=== PATIENT | male | born 1935 | race Caucasian/White ===

== ENCOUNTER → 2016-09-26 | Outpatient (CLI) | payer MEDICARE ==
[~2016-09-26] MED LIST: /ALLEGDTA; ASPI81TA60 PO; ATEN25TA PO; ATEN50TA2; COLA100C5 PO; COZA1TAB PO; DIOV160T5; LOSA25TA8 PO; PERC5TAB12 PO; PROT1TAB2 PO; SIMV80TA PO; TYLE325T5 PO; ZOCO80TA PO
[2016-09-26 13:36] LABS: BASO # 0.1 K/mm3 (0.0-0.2); BASO % 0.8 % (0.0-1.0); EOS # 0.4 K/mm3 (0.0-0.50); EOS % 3.9 % (0.0-3.0); LARGE UNSTAINED CELL # 0.2 K/mm3 (0.0-0.4); LARGE UNSTAINED CELL % 1.9 % (0.0-4.0); LYMPH # 4.4 K/mm3 (1.5-4.5); LYMPH % 45.2 % (24.0-44.0); MEAN CORPUSCULAR HEMOGLOBIN 28.7 pg (27.0-33.0); MEAN CORPUSCULAR HGB CONC 33.1 g/dl (32.0-36.5); MEAN CORPUSCULAR VOLUME 86.7 fl (80.0-96.0); MONO # 0.4 K/mm3 (0.0-0.8); MONO % 4.5 % (0.0-5.0); NEUTROPHILS # 4.1 K/mm3 (1.8-7.7); NEUTROPHILS % 43.7 % (36.0-66.0); PLATELET COUNT, AUTOMATED 195 k/mm3 (150-450); RED CELL DISTRIBUTION WIDTH 13.7 % (11.5-14.5); WHITE BLOOD COUNT 9.4 K/mm3 (4.0-10.0)
--- NOTE | 2016-09-26 13:52 | REP ---
CHEST X-RAY: Two views. HISTORY: Essential hypertension. COMPARISON STUDY: May 12, 2015. FINDINGS: The lungs are symmetrically aerated and free of infiltrate. The pleural angles are sharp. Heart is not enlarged. The aorta is somewhat tortuous. There are degenerative changes in the thoracic spine. 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 No other bony abnormality is seen. IMPRESSION: No active disease. Signed by Lito Plascencia MD 09/26/2016 02:46 P
[2016-09-26 14:03] LABS: ALBUMIN 3.6 GM/DL (3.2-5.2); CALCIUM LEVEL 8.9 MG/DL (8.8-10.2); CREATININE FOR GFR 1.34 MG/DL (0.70-1.30); GLOMERULAR FILTRATION RATE 54.2 (>35); PHOSPHORUS LEVEL 2.5 MG/DL (2.5-4.9); POTASSIUM SERUM 4.5 MEQ/L (3.5-5.1)
== END ==
LOC: M LAB 12:55
PROVIDERS: ATTEND Internal Medicine Cardiovascular Disease
DX: I10 Essential (primary) hypertension (principal)

== ENCOUNTER → 2016-11-14 | Outpatient (CLI) | payer MEDICARE ==
--- NOTE | 2016-11-14 17:45 | REP ---
MRI THORACIC SPINE WITHOUT CONTRAST: HISTORY: Mid back pain. COMPARISON: 10/30/2006 A disc bulge is present at the T1-2 level. There is minimal effacement of the thecal sac without spinal cord compression. The T1 neural foramina are patent. A disc bulge is present at the T2-3 level. There is minimal effacement of the thecal sac without spinal cord compression. The T2 neural foramina are patent. A small left paracentral disc protrusion is present at the T7-8 level. There is minimal effacement of the thecal sac without spinal cord compression. The T7 neural foramina are patent. A disc bulge is present at the T8-9 level. There is minimal effacement of the thecal sac without spinal cord compression. The T8 neural foramina are patent. A disc bulge and small central disc protrusion are present at the T9-10 level. There is minimal effacement of the thecal sac without spinal cord compression. The T9 neural foramina are patent. There is no other disc bulge or herniation. The remaining neural foramina are patent. The spinal cord is normal in signal intensity. There is loss of height of several lower thoracic intervertebral discs consistent with disc degeneration. Increased signal intensity on T2-weighted images is present in the endplates of several mid and lower thoracic vertebral bodies. This represents degenerative change. IMPRESSION: 1. Disc bulges at the T1-2, T2-3 and T8-9 levels without spinal cord compression. 2. Small disc protrusion at the T7-8 level without spinal cord compression. 3. Disc bulge and small disc protrusion at the T9-10 level without spinal cord compression. There is no significant change compared to the previous study. Signed by Gabriele Carrillo MD 11/18/2016 08:11 A
== END ==
LOC: M PLARAD 09:45
PROVIDERS: ATTEND Physical Medicine & Rehabilitation
DX: M54.6 Pain in thoracic spine (principal)

== ENCOUNTER 2017-07-29 08:04 | Outpatient (RCR) | payer MEDICARE | END 2017-08-13 | LOC: M CR 08:04 | DX: Z98.61 Coronary angioplasty status (principal) | CPT/HCPCS: 93798 ==

== ENCOUNTER 2017-08-17 09:41 | Outpatient (RCR) | payer MEDICARE | END 2017-09-12 | LOC: M CR 09:41 | DX: Z51.89 Encounter for other specified aftercare (principal); Z98.61 Coronary angioplasty status | CPT/HCPCS: 93798 ==

== ENCOUNTER 2017-09-21 09:13 | Outpatient (RCR) | payer MEDICARE | END 2017-10-13 | LOC: M CR 09:13 | DX: Z98.61 Coronary angioplasty status (principal) | CPT/HCPCS: 93798 ==

== ENCOUNTER 2017-09-28 12:36 | Emergency (ER) | payer MEDICARE ==
[2017-09-28] MEDS: ACETAMINOPHEN 325 MG TAB PO (15:23)
[2017-09-28 15:39] LABS: BASO # 0.1 10^3/uL (0.0-0.2); BASO % 0.5 % (0.0-1.0); EOS # 0.2 10^3/uL (0.0-0.50); EOS % 1.5 % (0.0-3.0); HEMATOCRIT 47.9 % (42.0-52.0); HEMOGLOBIN 15.5 g/dl (13.5-17.5); IMMATURE GRANULOCYTE % 0.8 % (0-3.0); LYMPH % 31.2 % (24.0-44.0); MEAN CORPUSCULAR HEMOGLOBIN 28.4 pg (27.0-33.0); MEAN CORPUSCULAR HGB CONC 32.4 g/dl (32.0-36.5); MEAN CORPUSCULAR VOLUME 87.9 fl (80.0-96.0); MONO # 1.4 10^3/uL (0.0-0.8); MONO % 10.8 % (0.0-5.0); NEUTROPHILS % 55.2 % (36.0-66.0); PLATELET COUNT, AUTOMATED 210 10^3/uL (150-450); RED BLOOD COUNT 5.45 10^6/uL (4.30-6.10); RED CELL DISTRIBUTION WIDTH 14.1 % (11.5-14.5); WHITE BLOOD COUNT 12.7 10^3/uL (4.0-10.0)
[2017-09-28 15:50] LABS: ANION GAP 8 MEQ/L (8-16); BLOOD UREA NITROGEN 26 MG/DL (7-18); CALCIUM LEVEL 8.8 MG/DL (8.8-10.2); CARBON DIOXIDE LEVEL 27 MEQ/L (21-32); CHLORIDE LEVEL 106 MEQ/L (98-107); CREATININE FOR GFR 1.42 MG/DL (0.70-1.30); GLOMERULAR FILTRATION RATE 50.6 (>35); GLUCOSE, FASTING 103 MG/DL (70-100); POTASSIUM SERUM 4.8 MEQ/L (3.5-5.1); SODIUM LEVEL 141 MEQ/L (136-145); URIC ACID 8.9 MG/DL (3.5-7.2)
[2017-10-01 00:20] LABS: Lyme Disease IgG Ab 18 kDa Ban Absent (.); Lyme Disease IgG Ab 23 kDa Ban Present (.); Lyme Disease IgG Ab 28 kDa Ban Absent (.); Lyme Disease IgG Ab 30 kDa Ban Absent (.); Lyme Disease IgG Ab 39 kDa Ban Absent (.); Lyme Disease IgG Ab 41 kDa Ban Absent (.); Lyme Disease IgG Ab 45 kDa Ban Absent (.); Lyme Disease IgG Ab 58 kDa Ban Absent (.); Lyme Disease IgG Ab 66 kDa Ban Absent (.); Lyme Disease IgG Ab 93 kDa Ban Absent (.); Lyme Disease IgG West Blot Int Negative (.); Lyme Disease IgG/IgM Antibodie 0.95 ISR (0.00-0.90); Lyme Disease IgM Ab 23 kDa Ban Absent (.); Lyme Disease IgM Ab 39 kDa Ban Absent (.); Lyme Disease IgM Ab 41 kDa Ban Present (.); Lyme Disease IgM Ab Quantitati <0.80 index (0.00-0.79); Lyme Disease IgM West Blot Int Negative (.)
== END 2017-09-28 16:49 | disposition home or self-care (01) ==
LOC: M ED 12:36
DX: M10.071 Idiopathic gout, right ankle and foot (principal); I10 Essential (primary) hypertension; Z96.0 Presence of urogenital implants; M77.31 Calcaneal spur, right foot; M79.89 Other specified soft tissue disorders; Z79.82 Long term (current) use of aspirin; Z79.899 Other long term (current) drug therapy
CPT/HCPCS: 73610

== ENCOUNTER → 2017-11-09 | Outpatient (REF) | payer MEDICARE ==
[2017-11-09 14:24] LABS: URIC ACID 8.8 MG/DL (3.5-7.2)
== END ==
LOC: M LAB REF 13:26
DX: M10.071 Idiopathic gout, right ankle and foot (principal)
CPT/HCPCS: 84550

== ENCOUNTER → 2017-12-14 | Outpatient (REF) | payer MEDICARE ==
[2017-12-14 19:29] LABS: URIC ACID 8.3 MG/DL (3.5-7.2)
== END ==
LOC: M LAB REF 18:40
DX: M10.071 Idiopathic gout, right ankle and foot (principal)
CPT/HCPCS: 84550

== ENCOUNTER → 2018-06-01 | Outpatient (REF) | payer MEDICARE ==
[~2018-06-01] MED LIST changes: +ANOR1AER; +ATEN50TA2 PO; +BRIL90TA PO; +LOSA25TA14 PO; -LOSA25TA8 PO; +LOSA50TA88; +NORCOTAB PO; +PROAAER10; -SIMV80TA PO; +SIMV80TA13 PO
== END ==
LOC: M LAB REF 17:46
PROVIDERS: ATTEND Internal Medicine
DX: M10.071 Idiopathic gout, right ankle and foot (principal)

== ENCOUNTER → 2018-07-12 | Outpatient (CLI) | payer MEDICARE ==
[~2018-07-12] MED LIST changes: +HYDR-3715 PO; -NORCOTAB PO
== END ==
LOC: M RAD 09:30
PROVIDERS: ATTEND Physical Medicine & Rehabilitation
DX: M51.36 Other intervertebral disc degeneration, lumbar region (principal)

== ENCOUNTER → 2018-12-07 | Outpatient (REF) | payer MEDICARE | LOC: M LAB REF 12:48 | PROVIDERS: ATTEND Internal Medicine | DX: M10.071 Idiopathic gout, right ankle and foot (principal) ==

== ENCOUNTER 2019-05-19 23:14 | Inpatient (IN) | payer MEDICARE ==
[~2019-05-19] VITALS: Ht 172.7 cm; Wt 95.2 kg
[2019-05-20] MEDS ORDERED: NORCO, ANEXSIA 5/325MG TABLET (HYDROcodone/ACETAMINOPHEN) PO ONE (02:00)
[2019-05-20 02:23] LABS: BASO # 0.1 10^3/uL (0.0-0.2); BASO % 0.8 % (0.0-1.0); EOS # 0.3 10^3/uL (0.0-0.5); EOS % 2.7 % (0.0-3.0); HEMATOCRIT 48.9 % (42.0-52.0); HEMOGLOBIN 15.7 g/dl (13.5-17.5); LYMPH # 3.5 10^3/uL (1.5-5.0); LYMPH % 29.2 % (24.0-44.0); MEAN CORPUSCULAR HEMOGLOBIN 26.9 pg (27.0-33.0); MEAN CORPUSCULAR HGB CONC 32.1 g/dl (32.0-36.5); MEAN CORPUSCULAR VOLUME 83.9 fl (80.0-96.0); MONO # 0.9 10^3/uL (0.0-0.8); MONO % 7.5 % (0.0-5.0); NEUTROPHILS # 7.1 10^3/uL (1.5-8.5); NEUTROPHILS % 58.8 % (36.0-66.0); PLATELET COUNT, AUTOMATED 196 10^3/uL (150-450); RED BLOOD COUNT 5.83 10^6/uL (4.30-6.10)
[2019-05-20 02:46] LABS: BLOOD UREA NITROGEN 24 MG/DL (7-18); CALCIUM LEVEL 8.4 MG/DL (8.8-10.2); CARBON DIOXIDE LEVEL 28 MEQ/L (21-32); CHLORIDE LEVEL 107 MEQ/L (98-107); CK-MB VALUE MASS 3.2 NG/ML (<3.6); CPK CREATINE PHOSPHOKINASE 315 U/L (39-308); CREATININE FOR GFR 1.46 MG/DL (0.70-1.30); GLOMERULAR FILTRATION RATE 48.9 (>35); GLUCOSE, FASTING 118 MG/DL (70-100); MB/CK RELATIVE INDEX 1.02 (< OR =4); NT-PRO BNP 460 PG/ML (<450); SODIUM LEVEL 140 MEQ/L (136-145); TROPONIN I < 0.02 NG/ML (< 0.10)
[2019-05-20] MEDS ORDERED: ISOVUE-370 76% 100ML VIAL (Q9967) As Ordered ONE (03:06)
--- NOTE | 2019-05-20 03:48 | REPVR ---
PROCEDURE INFORMATION: Exam: CT Angiography Chest With Contrast Exam date and time: 05/20/2019 1:54 AM Age: 83 years old Clinical indication: Right-sided chest pain; Additional info: Right sided pleuritic chest pain, persistant cough TECHNIQUE: Imaging protocol: Computed tomographic angiography of the chest with intravenous contrast. 3D rendering: MIP and/or 3D reconstructed images were created by the technologist. Radiation optimization: All CT scans at this facility use at least one of these dose optimization techniques: automated exposure control; mA and/or kV adjustment per patient size (includes targeted exams where dose is matched to clinical indication); or iterative reconstruction. Contrast material: ISO; Contrast volume: 75 ml; Contrast route: AC; COMPARISON: CR Chest, 2 view PA, Lat 09/26/2016 1:11 PM FINDINGS: Pulmonary arteries: The main pulmonary artery measures 29 mm. No central pulmonary embolism is identified. Aorta: The ascending thoracic aorta measures 38 mm. Lungs: Minimal bibasilar fibro-atelectatic change and question of minimal patchy ground-glass infiltrates in the posterior lungs. Pleural space: Unremarkable. No pneumothorax. No pleural effusion. Heart: Unremarkable. No cardiomegaly. No pericardial effusion. Lymph nodes: Unremarkable. No enlarged lymph nodes. Bones/joints: There is some segmental ankylosis in the lower thoracic spine. Disruption of anterior right costochondral cartilage medial to the right anterior 6th and 7th ribs. This is on series 403, image # 29 and 25. Soft tissues: Unremarkable. IMPRESSION: 1. Fracture or disruption of right anterior costochondral cartilage medial to the anterior right 6th and 7th ribs. 2. Minimal bibasilar fibro-atelectatic change with minimal patchy infiltrates posteriorly in the upper lobes and lower lobes. 3. No central pulmonary embolism is identified. Electronically signed by: Yosi Cisneros On 05/20/2019 03:47:46 AM
[2019-05-20] MEDS ORDERED: ONDANSETRON 4MG/2ML VIAL (J2405) IV ONE (04:15)
[2019-05-20] MEDS ORDERED: MORPHINE 4 MG/ML 1ML VIAL/SYRINGE (J2270) As Ordered ONE (04:17)
[2019-05-20] MEDS: MORPHINE 4 MG/ML 1ML VIAL/SYRINGE (J2270) IV PRN ×2 (04:24→05:05)
[2019-05-20] MEDS ORDERED: SODIUM CHLORIDE 0.9% 1000ML IV STA (04:42)
[2019-05-20] MEDS ORDERED: methylPREDNISolone INJ 125 MG/2 ML VIAL (J2930) IV STA (04:42)
--- NOTE | 2019-05-20 04:42 | HPEPDOC ---
[facility] Medical History & Physical Date of Admission May 20, 2019 Date of Service: May 20, 2019 Primary Care Physician: Jr Lewis Collins Attending Physician: YESSENIA VAN MD History and Physical TIME OF SERVICE: 4:55 AM CHIEF COMPLAINT: Cough HISTORY OF PRESENT ILLNESS: This is an 83-year-old male who presents with complaints of cough productive of green sputum for about 1 month. He saw his PCP who gave him 2 rounds of CPAP, prednisone, Mucinex, and Robitussin but he continues to cough. Associated symptoms include runny nose and right-sided chest pain that is made worse with coughing. He denies having fevers or chills; he has not traveled and denies having sick contacts. Per his respiratory panel was negative but CT showed 2 right rib fractures. REVIEW OF SYSTEMS: 12 point review of systems negative except as listed in HPI PAST MEDICAL/ SURGICAL HISTORY: COPD Chronic HTN CAD status post stents / Dyslipidemia Cholecystectomy Right rotator cuff surgery SOCIAL HISTORY: Former smoker FAMILY HISTORY: Cancer CAD COPD ALLERGIES: Please see below. HOME MEDICATIONS: Please see below. Vital Signs Date Time Temp Pulse Resp B/P (MAP) Pulse Ox O2 Delivery O2 Flow Rate FiO2 05/19/19 23:14 95.9 69 18 192/99 (130) 96 Room Air 05/20/19 06:00 2.0 05/20/19 06:00 28 PHYSICAL EXAMINATION: GEN: well nourished / well developed/ NAD INTEGUMENT: Doesn't have facial plethora HEENT:NCAT / lips are not cyanotic / NC in place CVS: RRR/ radial pulses are intact LUNGS: he is able to speak full sentences without stopping to take a breath / coughing /he is not using accessory muscles /lungs are clear to auscultation bilaterally ABDOMEN: soft & not tender with palpation NEURO: CN 2-12 are grossly intact / speech is not dysarthric PSYCH: alert and oriented to person place and time/ able to understand and follow all commands LABORATORY DATA: Anion Gap 5L, Glomerular Filtration Rate 48.9, Calcium Level 8.4L, Total Creatine Kinase 315H, Creatine Kinase MB 3.2, Creatine Kinase MB Relative Index 1.02, Troponin I < 0.02, SD-Lyl-J-Type Natriuretic Peptide 460H, Lactic Acid Level 0.9 IMAGING: CT chest " IMPRESSION: 1. Fracture or disruption of right anterior costochondral cartilage medial to the anterior right 6th and 7th ribs. 2. Minimal bibasilar fibro-atelectatic lane nge with minimal patchy infiltrates posteriorly in the upper lobes and lower lobes. 3. No central pulmonary embolism is identified." MICROBIOLOGY: Microbiology Blood Culture, Received Pending Blood Culture, Received Pending Respiratory Virus Panel (PCR) ([facility]) - Final, Complete ASSESSMENT: Mr. Alexander is an 83-year-old with a past medical history of COPD, HTN, CAD, and dyslipidemia, was admitted for management of pain due to right-sided rib fractures. PLAN: 1 Two right-sided rib fractures. Plan: Admit to medical floor/morphine/lidocaine patch/incentive spirometry/if his pain is not well controlled with these meds, the daytime team may consider consulting anesthesiology to do nerve block 2. COPD The respiratory panel and CT were negative for viral or bacterial infection, he may have bronchitis due to changes in the weather. Plan: supplemental O2 / aspiration precautions /Dunebs Q6H with Albuterol Q4HP / c/w mucinex 3. SIRS with hypothermia and tachypnea, likely reactive due to viral infection - Plan: Monitor vitals 4. Chronic HTN - Plan: Losartan 5. CAD / Dyslipidemia - Plan: Rosuvastatin 6. Elevated BNP - Plan: can f/u with PCP for an Echo on an out patient basis 7. Obesity with BMI of 33.1 complicates care - Plan: f/u A1C DVT PROPHYLAXIS:Lovenox DISPOSITION: home after more than 2 midnight's stay Home Medications Scheduled Aspirin (Aspirin EC) 81 Mg Tablet.dr, 81 MG PO QHS Atenolol (Atenolol) 50 Mg Tab, 50 MG PO QHS Azithromycin (Azithromycin) 250 Mg Tablet, 250 MG PO ASDIRECTED 500MG ON DAY 1, 250MG ON DAY 2-5; NEXT DOSE IS DAY 3 Guaifenesin (Mucinex) 600 Mg Tab.er.12h, 600 MG PO BID Losartan Potassium (Losartan Potassium) 50 Mg Tablet, 50 MG PO QHS Rosuvastatin Calcium (Crestor) 20 Mg Tablet, 20 MG PO QHS Umeclidinium Brm/Vilanterol Tr (Anoro Ellipta 62.5-25 Mcg INH) 1 Each Blst.w.dev, 1 PUFF INH QHS Scheduled PRN Albuterol Sulf (Albuterol Sulfate) 2.5 Mg/3 Ml Vial.neb, 2.5 MG INH Q4H PRN for SHORTNESS OF BREATH Allergies Coded Allergies: No Known Allergies (Verified , 08/18/09) A-FIB/CHADSVASC A-FIB History Current/History of A-Fib/PAF?: No Current PO Anticoag Therapy: No YESSENIA VAN MD May 20, 2019 04:42
[2019-05-20] MEDS ORDERED: LevoFLOXacin IV 750 MG in IV 1 EA IV ONE (04:45)
[2019-05-20] MEDS ORDERED: MAALOX 30 ML SUSP *UDC PO PRN (04:45)
[2019-05-20] MEDS ORDERED: ALBUTEROL SULFATE 2.5 MG/0.5 ML INH NEB SOLN NEB PRN (04:45)
[2019-05-20] MEDS ORDERED: ALBU83IN INH (04:51)
[2019-05-20] MEDS ORDERED: CRES20TA2 PO (04:51)
[2019-05-20] MEDS ORDERED: ANOR1AER INH (04:51)
[2019-05-20] MEDS ORDERED: ASPI-161 PO (04:51)
[2019-05-20] MEDS ORDERED: MUCI600T31 PO (04:51)
[2019-05-20] MEDS ORDERED: AZIT-12 PO (04:51)
[2019-05-20] MEDS ORDERED: LOSA50TA88 PO (04:51)
[2019-05-20] MEDS ORDERED: LIDOCAINE 5% (LIDODERM) PATCH TD ONE (05:00)
--- NOTE | 2019-05-20 05:42 | ECGEPIP ---
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
[2019-05-20 06:00] VITALS: O2SAT 94
[2019-05-20] MEDS: MORPHINE 2 MG/ML 1ML VIAL (J2270) IV PRN ×3 (06:11→18:43)
[2019-05-20 08:13] LABS: HEMOGLOBIN A1c 6.2 %
[2019-05-20] MEDS: IPRATROPIUM 0.5MG/ALBUTEROL 2.5MG INH SOL UD 3ML (DUONEB)(J7620) NEB SCH ×2 (08:19→19:25)
[2019-05-20] MEDS: AZITHROMYCIN 250 MG TAB PO SCH (08:38)
[2019-05-20] MEDS: ENOXAPARIN 40 MG/0.4 ML SYRINGE (J1650) SC SCH (08:38)
[2019-05-20] MEDS: guaiFENesin ER 600 MG TAB PO SCH ×2 (08:38→20:36)
[2019-05-20] MEDS: DOCUSATE SODIUM 100 MG CAP PO SCH ×2 (08:38→20:34)
[2019-05-20] MEDS ORDERED: PANTOPRAZOLE 40MG TAB (PROTONIX) PO SCH (09:00)
[2019-05-20] MEDS ORDERED: predniSONE 20 MG TAB PO SCH (09:00)
[2019-05-20 15:58] VITALS: BP 179/96
[2019-05-20] MEDS: ACETAMINOPHEN TAB 650MG DOSE (2X325MG) PO PRN ×2 (16:07→21:42)
[2019-05-20] MEDS: BENZONATATE 100 MG CAP PO PRN (16:07)
[2019-05-20] MEDS ORDERED: **NOTE PATIENT COMMENT** MISC XX ONE (17:00)
[2019-05-20 18:45] VITALS: BP 140/84
[2019-05-20 20:00] VITALS: BP 129/74
[2019-05-20] MEDS: ROSUVASTATIN 10 MG TAB (CRESTOR) PO SCH (20:35)
[2019-05-20] MEDS: ASPIRIN 81 MG ENTERIC TAB PO SCH (20:36)
[2019-05-20] MEDS: LOSARTAN 50 MG TAB PO SCH (20:36)
[2019-05-20] MEDS: atenoloL 50 MG TAB PO SCH (20:36)
[2019-05-21] VITALS: BP 119/70
[2019-05-21] MEDS: IPRATROPIUM 0.5MG/ALBUTEROL 2.5MG INH SOL UD 3ML (DUONEB)(J7620) NEB SCH ×4 (01:39→21:17)
[2019-05-21] MEDS: ACETAMINOPHEN TAB 650MG DOSE (2X325MG) PO PRN ×2 (02:21→06:36)
[2019-05-21] MEDS: BENZONATATE 100 MG CAP PO PRN ×3 (05:16→23:50)
[2019-05-21 05:39] LABS: HEMOGLOBIN 14.9 g/dl (13.5-17.5); MEAN CORPUSCULAR HEMOGLOBIN 26.9 pg (27.0-33.0); MEAN CORPUSCULAR HGB CONC 31.7 g/dl (32.0-36.5); MEAN CORPUSCULAR VOLUME 84.8 fl (80.0-96.0); PLATELET COUNT, AUTOMATED 220 10^3/uL (150-450); RED BLOOD COUNT 5.54 10^6/uL (4.30-6.10); WHITE BLOOD COUNT 23.9 10^3/uL (4.0-10.0)
[2019-05-21 06:00] LABS: CALCIUM LEVEL 8.2 MG/DL (8.8-10.2); CREATININE FOR GFR 1.68 MG/DL (0.70-1.30); GLOMERULAR FILTRATION RATE 41.5 (>35); POTASSIUM SERUM 4.6 MEQ/L (3.5-5.1)
[2019-05-21] MEDS ORDERED: LevoFLOXacin 750 MG TABLET PO SCH (06:00)
[2019-05-21 08:00] VITALS: BP 146/86
[2019-05-21] MEDS: AZITHROMYCIN 250 MG TAB PO SCH (08:28)
[2019-05-21] MEDS: DOCUSATE SODIUM 100 MG CAP PO SCH ×2 (08:28→20:40)
[2019-05-21] MEDS: guaiFENesin ER 600 MG TAB PO SCH (08:28)
[2019-05-21] MEDS: ENOXAPARIN 40 MG/0.4 ML SYRINGE (J1650) SC SCH (08:28)
[2019-05-21] MEDS: ONDANSETRON 4 MG TAB (S0181) PO PRN (08:28)
[2019-05-21] MEDS: MOM 30ML SUSPENSION UDC PO PRN (09:47)
[2019-05-21] MEDS: MORPHINE 2 MG/ML 1ML VIAL (J2270) IV PRN ×6 (09:47→23:51)
[2019-05-21] MEDS: FUROSEMIDE 40 MG/4 ML VIAL (J1940) IV SCH ×3 (09:48→22:00)
[2019-05-21] MEDS: DICLOFENAC EPOLAMINE 1.3 % PATCH TOP SCH ×2 (10:11→20:40)
--- NOTE | 2019-05-21 11:57 | IPNPDOC ---
Date Seen The patient was seen on 05/21/19. Progress Note SUBJECTIVE: 83-year-old male with past medical history of COPD, hypertension, coronary artery disease and hyperlipidemia was admitted for questionable pneumonia versus COPD exacerbation. Patient was found to have 2 rib fractures due to persistent coughing, having significant pleuritic chest pain. Patient reports significant discomfort overnight due to pain, cough and dyspnea. He has no additional complaints, denies any nausea, vomiting, abdominal pain or diarrhea. He does have lower extremity edema, unknown if baseline. Patient denies history of CHF. 10 point review of system is negative except for above PHYSICAL EXAMINATION: VITAL SIGNS: Please see below. GENERAL: Mild distress HEENT: Normocephalic, atraumatic, moist mucous membranes NECK: Supple CARDIOVASCULAR EXAMINATION: S1, S2, no murmurs RESPIRATORY EXAMINATION: Scattered rhonchi, especially in the bases, no wheezing ABDOMINAL EXAMINATION: Soft, nontender, nondistended, positive bowel sounds EXTREMITIES: Bilateral lotion but appearing edema SKIN: No rash NEUROLOGICAL EXAMINATION: Alert and oriented 3, no focal deficits PSYCHIATRIC EXAMINATION: Calm and cooperative LABORATORY DATA, IMAGING STUDIES, MICROBIOLOGY: Please see below. ASSESSMENT AND PLAN: 83-year-old male with past medical history of COPD, coronary artery disease, hypertension, hyperlipidemia is admitted for COPD exacerbation and acute congestive heart failure. PROBLEMS: 1. Acute congestive heart failure: Patient's symptoms, imaging and physical exam findings consistent with volume overload, start Lasix 40 mg IV every 6 hours, monitor I's and O's, daily weight, fluid restriction of 1200 cc per day, TTE pending. 2. COPD exacerbation: Continue steroids, DuoNeb's, supplemental oxygen as needed to maintain O2 sats between 88-92%. 3. Hypertension: Continue losartan. 4. Coronary artery disease: History of stent placement 2, continue medical ma nagement. 5. Rib fractures: Nondisplaced, secondary to severe coughing, pain control, will add diclofenac patch to the regimen. DVT prophylaxis: Lovenox. GI prophylaxis: Not needed VS, I&O, 24H, Fishbone Vital Signs/I&O Vital Signs Date Time Temp Pulse Resp B/P (MAP) Pulse Ox O2 Delivery O2 Flow Rate FiO2 05/21/19 09:57 18 05/21/19 08:00 98.1 79 146/86 (106) 92 Nasal Cannula 2.0 05/20/19 06:31 28 I&O- Last 24 Hours up to 6 AM 05/21/19 06:00 Intake Total 2510 ml Output Total 1075 ml Balance 1435 ml Laboratory Data 24H LABS Laboratory Tests 2 05/21/19 05:12: Nucleated Red Blood Cells % (auto) 0.0, Anion Gap 4L, Glomerular Filtration Rate 41.5, Calcium Level 8.2L, Magnesium Level 2.0 CBC/BMP Laboratory Tests 05/21/19 05:12 Microbiology Microbiology 05/20/19 Blood Culture - Preliminary, Resulted No growth after 24 hours . All specim... 05/20/19 Blood Culture - Preliminary, Resulted No growth after 24 hours . All specim... 05/20/19 Blood Culture - Preliminary, Resulted No growth after 24 hours . All specim... 05/20/19 Respiratory Virus Panel (PCR) ([facility]) - Final, Complete TAMEKA OSBORNE MD May 21, 2019 11:57
[2019-05-21 12:00] VITALS: BP 145/82
[2019-05-21 16:00] VITALS: BP 126/76
[2019-05-21 20:00] VITALS: BP 103/62
[2019-05-21] MEDS: ROSUVASTATIN 10 MG TAB (CRESTOR) PO SCH (20:41)
[2019-05-21] MEDS: ASPIRIN 81 MG ENTERIC TAB PO SCH (20:42)
[2019-05-21] MEDS: atenoloL 50 MG TAB PO SCH (20:49)
[2019-05-21] MEDS: LOSARTAN 50 MG TAB PO SCH (20:50)
[2019-05-21 22:42] VITALS: BP 98/60
[2019-05-22] VITALS: BP 120/82
[2019-05-22] MEDS: IPRATROPIUM 0.5MG/ALBUTEROL 2.5MG INH SOL UD 3ML (DUONEB)(J7620) NEB SCH ×4 (02:00→20:58)
[2019-05-22 04:00] VITALS: BP 116/74
[2019-05-22] MEDS: MORPHINE 2 MG/ML 1ML VIAL (J2270) IV PRN ×6 (04:20→20:14)
[2019-05-22] MEDS: FUROSEMIDE 40 MG/4 ML VIAL (J1940) IV SCH ×3 (04:24→16:18)
[2019-05-22] MEDS ORDERED: LevoFLOXacin IV 750 MG in IV 1 EA IV SCH (05:00)
[2019-05-22 05:51] LABS: HEMATOCRIT 48.4 % (42.0-52.0); HEMOGLOBIN 15.6 g/dl (13.5-17.5); MEAN CORPUSCULAR HEMOGLOBIN 27.7 pg (27.0-33.0); MEAN CORPUSCULAR HGB CONC 32.2 g/dl (32.0-36.5); PLATELET COUNT, AUTOMATED 230 10^3/uL (150-450); RED BLOOD COUNT 5.63 10^6/uL (4.30-6.10); WHITE BLOOD COUNT 18.3 10^3/uL (4.0-10.0)
[2019-05-22] MEDS: ONDANSETRON 4 MG TAB (S0181) PO PRN (06:05)
[2019-05-22 06:26] LABS: CALCIUM LEVEL 8.9 MG/DL (8.8-10.2); CREATININE FOR GFR 2.14 MG/DL (0.70-1.30); GLOMERULAR FILTRATION RATE 31.4 (>35); MAGNESIUM LEVEL 2.4 MG/DL (1.8-2.4); PHOSPHORUS LEVEL 4.6 MG/DL (2.5-4.9); POTASSIUM SERUM 4.5 MEQ/L (3.5-5.1)
[2019-05-22 08:00] VITALS: BP 142/86
[2019-05-22] MEDS: MOM 30ML SUSPENSION UDC PO PRN (09:02)
[2019-05-22] MEDS: DICLOFENAC EPOLAMINE 1.3 % PATCH TOP SCH ×2 (09:03→20:18)
[2019-05-22] MEDS: ENOXAPARIN 40 MG/0.4 ML SYRINGE (J1650) SC SCH (09:03)
[2019-05-22] MEDS: DOCUSATE SODIUM 100 MG CAP PO SCH ×2 (09:03→20:13)
[2019-05-22] MEDS: AZITHROMYCIN 250 MG TAB PO SCH (09:03)
[2019-05-22 12:00] VITALS: BP 99/67
[2019-05-22] MEDS: BENZONATATE 100 MG CAP PO PRN (13:26)
--- NOTE | 2019-05-22 14:05 | ECHO ---
DATE OF PROCEDURE: 05/21/2019 DATE OF : 1935 AGE: 83 PATIENT LOCATION: Room 3212 REASON FOR THE STUDY: Shortness of breath. 2-D MEASUREMENTS: IVS: 1.0 cm LV: 4.0 cm LVPW: 1.1 cm LA: 4.3 cm Aorta: 3.2 cm IVC: 2.0 cm DOPPLER MEASUREMENTS: Peak velocity across the aortic valve: 1.0 m/sec Peak velocity across the LVOT: 0.82 m/sec Mitral E: 0.57, Mitral A: 0.76 with a ratio of 0.8 Maximum tricuspid valve velocity: 3.2 m/sec 2-D COMMENTS: 1. Normal left ventricular size, wall thickness, and normal global left ventricular systolic function. The estimated ventricular systolic ejection fraction is 55-60%. 2. Mildly enlarged left atrium. The right atrium and right ventricle appeared to be normal in size. 3. The atrial septum appeared to be normal without evidence of defect or shunt. 4. Trace pericardial effusion noted, no evidence of cardiac tamponade. 5. Mildly calcified aortic valve with normal leaflet excursion. Mildly calcified mitral annulus with normal anterior mitral leaflet motion. Normal tricuspid valve and pulmonic valve. The proximal pulmonary artery branches also appeared to be normal. 6. The inferior vena cava was mildly enlarged, central venous pressure might be elevated. DOPPLER: It detects mild tricuspid regurgitation. The calculated pulmonary artery systolic pressure varies between 40-50 mmHg. Abnormal relaxation pattern was noted across the mitral valve leaflets as well as the mitral valve annulus consistent with features of grade 1 left ventricular diastolic dysfunction. IMPRESSION: 1. Normal global left ventricular systolic function. There are some features of grade 1 left ventricular diastolic dysfunction manifested by abnormal relaxation. 2. Aortic valve sclerosis without stenosis or aortic regurgitation. 3. Isolated mildly enlarged left atrium. Mitral annulus calcification was noted. 4. Mild tricuspid regurgitation with probably moderate pulmonary hypertension. 5. There were some features of elevated central venous pressure, the inferior vena cava was mildly enlarged. 6. Trace pericardial effusion, no evidence of cardiac tamponade.
[2019-05-22 16:00] VITALS: BP 117/74
--- NOTE | 2019-05-22 19:29 | IPNPDOC ---
Date Seen The patient was seen on 05/22/19. Progress Note SUBJECTIVE: 83-year-old male with past medical history of COPD, hypertension, coronary artery disease and hyperlipidemia was admitted for questionable pneumonia versus COPD exacerbation. Patient was found to have 2 rib fractures due to persistent coughing, having significant pleuritic chest pain. Patient reports significant discomfort overnight due to pain, cough and dyspnea. He has no additional complaints, denies any nausea, vomiting, abdominal pain or diarrhea. He does have lower extremity edema, unknown if baseline. Patient denies history of CHF. 05/22/19 Reports improvement in dyspnea, cough & pleuritic chest pain; although its still very cumbersome as he reports a poor night once again. He denies any new symptoms, good urine output. 10 point review of system is negative except for above PHYSICAL EXAMINATION: VITAL SIGNS: Please see below. GENERAL: Mild distress HEENT: Normocephalic, atraumatic, moist mucous membranes NECK: Supple CARDIOVASCULAR EXAMINATION: S1, S2, no murmurs RESPIRATORY EXAMINATION: Bibasilar rhonchi, no wheezing ABDOMINAL EXAMINATION: Soft, nontender, nondistended, positive bowel sounds EXTREMITIES: Bilateral lower extremity edema improving SKIN: No rash NEUROLOGICAL EXAMINATION: Alert and oriented 3, no focal deficits PSYCHIATRIC EXAMINATION: Calm and cooperative LABORATORY DATA, IMAGING STUDIES, MICROBIOLOGY: Please see below. ASSESSMENT AND PLAN: 83-year-old male with past medical history of COPD, coronary artery disease, hypertension, hyperlipidemia is admitted for COPD exacerbation and acute congestive heart failure. PROBLEMS: 1. Acute congestive heart failure: Patient's symptoms, imaging and physical exam findings consistent with volume overload, clinically improving with IV Lasix, created has jumped significantly, decrease Lasix to 40 mg IV every 12 hours, monitor I's and O's, daily weight, fluid restriction of 1200 cc per day, TTE read pending. 2. COPD exacerbation: Continue steroids, DuoNeb's, supplemental oxygen as needed to maintain O2 sats between 88-92%. 3. TASHA on CKD: secondary to Lasix, frequency has been decreased, will monitor renal function and adjust as needed, will hold Losartan. 3. Hypertension: Hold Losartan due to TASHA, BP acceptable at this time. 4. Coronary artery disease: History of stent placement 2, continue medical management. 5. Rib fractures: Nondisplaced, secondary to severe coughing, pain control. DVT prophylaxis: Lovenox. GI prophylaxis: Not needed VS, I&O, 24H, Fishbone Vital Signs/I&O Vital Signs Date Time Temp Pulse Resp B/P (MAP) Pulse Ox O2 Delivery O2 Flow Rate FiO2 05/22/19 16:27 20 05/22/19 16:00 97.6 79 117/74 (88) 90 05/22/19 08:00 Room Air 05/21/19 08:00 2.0 05/20/19 06:31 28 I&O- Last 24 Hours up to 6 AM 05/22/19 06:00 Intake Total 900 ml Output Total 2800 ml Balance -1900 ml Laboratory Data 24H LABS Laboratory Tests 2 05/22/19 05:02: Nucleated Red Blood Cells % (auto) 0.0, Anion Gap 3L, Glomerular Filtration Rate 31.4L, Calcium Level 8.9, Phosphorus Level 4.6, Magnesium Level 2.4 CBC/BMP Laboratory Tests 05/22/19 05:02 Microbiology Microbiology 05/20/19 Blood Culture - Preliminary, Resulted No Growth after 48 hours. All Specime... 05/20/19 Blood Culture - Preliminary, Resulted No Growth after 48 hours. All Specime... 05/20/19 Blood Culture - Preliminary, Resulted No Growth after 48 hours. All Specime... 05/20/19 Respiratory Virus Panel (PCR) ([facility]) - Final, Complete TAMEKA OSBORNE MD May 22, 2019 19:29
[2019-05-22 20:00] VITALS: BP 123/76
[2019-05-22] MEDS: ROSUVASTATIN 10 MG TAB (CRESTOR) PO SCH (20:13)
[2019-05-22] MEDS: ASPIRIN 81 MG ENTERIC TAB PO SCH (20:13)
[2019-05-22] MEDS: atenoloL 50 MG TAB PO SCH (20:13)
[2019-05-23] VITALS: BP 100/61
[2019-05-23] MEDS: ONDANSETRON 4 MG TAB (S0181) PO PRN ×2 (01:45→20:27)
[2019-05-23] MEDS: IPRATROPIUM 0.5MG/ALBUTEROL 2.5MG INH SOL UD 3ML (DUONEB)(J7620) NEB SCH ×4 (01:56→20:00)
[2019-05-23] MEDS: ACETAMINOPHEN TAB 650MG DOSE (2X325MG) PO PRN ×2 (02:43→17:59)
[2019-05-23 03:45] VITALS: BP 112/71
[2019-05-23] MEDS ORDERED: MIRALAX *UNIT DOSE* 17GM PACKET PO PRN (04:00)
[2019-05-23 04:31] LABS: HEMOGLOBIN 15.3 g/dl (13.5-17.5); MEAN CORPUSCULAR HEMOGLOBIN 27.4 pg (27.0-33.0); MEAN CORPUSCULAR HGB CONC 32.6 g/dl (32.0-36.5); MEAN CORPUSCULAR VOLUME 84.1 fl (80.0-96.0); PLATELET COUNT, AUTOMATED 212 10^3/uL (150-450); RED BLOOD COUNT 5.59 10^6/uL (4.30-6.10); WHITE BLOOD COUNT 16.4 10^3/uL (4.0-10.0)
[2019-05-23 04:54] LABS: CALCIUM LEVEL 8.9 MG/DL (8.8-10.2); CREATININE FOR GFR 2.56 MG/DL (0.70-1.30); GLOMERULAR FILTRATION RATE 25.6 (>35); POTASSIUM SERUM 4.6 MEQ/L (3.5-5.1)
[2019-05-23 08:00] VITALS: BP 170/92
[2019-05-23] MEDS ORDERED: FLEET OIL RETENTION ENEMA PR ONE (09:30)
[2019-05-23] MEDS: HEPARIN SOD (PORCINE) 5000 UNITS/ML VIAL (J1644 PER 1000UNITS) SQ SCH ×2 (09:35→20:28)
[2019-05-23] MEDS: DICLOFENAC EPOLAMINE 1.3 % PATCH TOP SCH ×2 (09:35→20:28)
[2019-05-23] MEDS ORDERED: LACTULOSE 20 GM/30 ML SYRUP UD PR ONE (10:00)
[2019-05-23] MEDS: MOM 30ML SUSPENSION UDC PO PRN (11:17)
[2019-05-23] MEDS: DOCUSATE SODIUM 100 MG CAP PO SCH ×2 (11:17→21:00)
[2019-05-23 12:00] VITALS: BP 131/85
[2019-05-23 16:00] VITALS: BP_SYST 128; BP_SYST 131; BP_DIAS 74; BP_DIAS 85
--- NOTE | 2019-05-23 16:41 | IPNPDOC ---
Date Seen The patient was seen on 05/23/19. Progress Note SUBJECTIVE: 83-year-old male with past medical history of COPD, hypertension, coronary artery disease and hyperlipidemia was admitted for questionable pneumonia versus COPD exacerbation. Patient was found to have 2 rib fractures due to persistent coughing, having significant pleuritic chest pain. Patient reports significant discomfort overnight due to pain, cough and dyspnea. He has no additional complaints, denies any nausea, vomiting, abdominal pain or diarrhea. He does have lower extremity edema, unknown if baseline. Patient denies history of CHF. 05/22/19 Reports improvement in dyspnea, cough & pleuritic chest pain; although its still very cumbersome as he reports a poor night once again. He denies any new symptoms, good urine output. 05/23/19 Patient with significant improvement in dyspnea & cough, continues to have pleuritic chest pain. He is very distressed due to constipation & abdominal distension, no improvement w/ oral laxatives. 10 point review of system is negative except for above PHYSICAL EXAMINATION: VITAL SIGNS: Please see below. GENERAL: mild distress HEENT: Normocephalic, atraumatic, moist mucous membranes NECK: Supple CARDIOVASCULAR EXAMINATION: S1, S2, no murmurs RESPIRATORY EXAMINATION: Bibasilar rhonchi, no wheezing ABDOMINAL EXAMINATION: Soft, nontender, nondistended, positive bowel sounds EXTREMITIES: Bilateral lower extremity edema improving SKIN: No rash NEUROLOGICAL EXAMINATION: Alert and oriented 3, no focal deficits PSYCHIATRIC EXAMINATION: Calm and cooperative LABORATORY DATA, IMAGING STUDIES, MICROBIOLOGY: Please see below. ASSESSMENT AND PLAN: 83-year-old male with past medical history of COPD, coronary artery disease, hypertension, hyperlipidemia is admitted for COPD exacerbation and acute congestive heart failure. PROBLEMS: 1. Acute congestive heart failure: clinically improving with IV Lasix, significant jump in creatinine, will discontinue Lasix for now and monitor, I's and O's, daily weight, fluid restriction of 1200 cc per day, TTE showing elevated pulmonary pressures, likely due to history of COPD. 2. COPD exacerbation: Continue steroids, DuoNeb's, supplemental oxygen as needed to maintain O2 sats between 88-92%. 3. TASHA on CKD: secondary to Lasix which has now been discontinued, monitor without intervention for now, will recheck in the morning, hold Losartan. 3. Hypertension: Hold Losartan due to TASHA, BP acceptable at this time. 4. Coronary artery disease: History of stent placement 2, continue medical management. 5. Rib fractures: Nondisplaced, secondary to severe coughing, pain control. DVT prophylaxis: Lovenox. GI prophylaxis: Not needed VS, I&O, 24H, Fishbone Vital Signs/I&O Vital Signs Date Time Temp Pulse Resp B/P (MAP) Pulse Ox O2 Delivery O2 Flow Rate FiO2 05/23/19 16:00 97.6 69 20 128/74 (92) 96 Room Air 05/21/19 08:00 2.0 05/20/19 06:31 28 I&O- Last 24 Hours up to 6 AM 05/23/19 06:00 Intake Total 1480 ml Output Total 1050 ml Balance 430 ml Laboratory Data 24H LABS Laboratory Tests 2 05/23/19 04:12: Nucleated Red Blood Cells % (auto) 0.0, Anion Gap 5L, Glomerular Filtration Rate 25.6L, Calcium Level 8.9 CBC/BMP Laboratory Tests 05/23/19 04:12 Microbiology Microbiology 05/20/19 Blood Culture - Preliminary, Resulted No Growth after 72 hours. All specime... 05/20/19 Blood Culture - Preliminary, Resulted No Growth after 72 hours. All specime... 05/20/19 Blood Culture - Preliminary, Resulted No Growth after 72 hours. All specime... 05/20/19 Respiratory Virus Panel (PCR) ([facility]) - Final, Complete TAMEKA OSBORNE MD May 23, 2019 16:41
[2019-05-23] MEDS: BENZONATATE 100 MG CAP PO PRN (18:26)
[2019-05-23 20:00] VITALS: BP 118/78
[2019-05-23] MEDS: atenoloL 50 MG TAB PO SCH (21:00)
[2019-05-23] MEDS: ASPIRIN 81 MG ENTERIC TAB PO SCH (21:00)
[2019-05-23] MEDS: ROSUVASTATIN 10 MG TAB (CRESTOR) PO SCH (21:00)
[2019-05-24] VITALS (8 sets, daily range): BP systolic 99–144; BP diastolic 30–74
[2019-05-24] MEDS: IPRATROPIUM 0.5MG/ALBUTEROL 2.5MG INH SOL UD 3ML (DUONEB)(J7620) NEB SCH ×4 (02:00→20:58)
[2019-05-24 05:14] LABS: HEMATOCRIT 44.1 % (42.0-52.0); HEMOGLOBIN 14.4 g/dl (13.5-17.5); MEAN CORPUSCULAR HEMOGLOBIN 27.6 pg (27.0-33.0); MEAN CORPUSCULAR HGB CONC 32.7 g/dl (32.0-36.5); MEAN CORPUSCULAR VOLUME 84.6 fl (80.0-96.0); PLATELET COUNT, AUTOMATED 161 10^3/uL (150-450); RED BLOOD COUNT 5.21 10^6/uL (4.30-6.10); WHITE BLOOD COUNT 11.3 10^3/uL (4.0-10.0)
[2019-05-24 05:31] LABS: CALCIUM LEVEL 8.4 MG/DL (8.8-10.2); CREATININE FOR GFR 2.05 MG/DL (0.70-1.30); POTASSIUM SERUM 4.4 MEQ/L (3.5-5.1)
[2019-05-24] MEDS: DOCUSATE SODIUM 100 MG CAP PO SCH ×2 (08:30→19:42)
[2019-05-24] MEDS: HEPARIN SOD (PORCINE) 5000 UNITS/ML VIAL (J1644 PER 1000UNITS) SQ SCH ×2 (08:30→19:42)
[2019-05-24] MEDS: DICLOFENAC EPOLAMINE 1.3 % PATCH TOP SCH ×2 (08:30→19:44)
[2019-05-24] MEDS: ACETAMINOPHEN TAB 650MG DOSE (2X325MG) PO PRN ×2 (08:31→19:43)
[2019-05-24] MEDS ORDERED: PERCOCET 5MG/325MG TAB PO PRN ×2 (11:00)
[2019-05-24] MEDS: ONDANSETRON 4 MG TAB (S0181) PO PRN (14:50)
[2019-05-24] MEDS ORDERED: diphenhydrAMINE 25 MG CAP PO PRN (15:30)
[2019-05-24] MEDS: ROSUVASTATIN 10 MG TAB (CRESTOR) PO SCH (19:42)
[2019-05-24] MEDS: ASPIRIN 81 MG ENTERIC TAB PO SCH (19:42)
[2019-05-24] MEDS: atenoloL 50 MG TAB PO SCH (19:44)
--- NOTE | 2019-05-24 20:09 | IPNPDOC ---
Date Seen The patient was seen on 05/24/19. Progress Note SUBJECTIVE: 83-year-old male with past medical history of COPD, hypertension, coronary artery disease and hyperlipidemia was admitted for questionable pneumonia versus COPD exacerbation. Patient was found to have 2 rib fractures due to persistent coughing, having significant pleuritic chest pain. Patient reports significant discomfort overnight due to pain, cough and dyspnea. He has no additional complaints, denies any nausea, vomiting, abdominal pain or diarrhea. He does have lower extremity edema, unknown if baseline. Patient denies history of CHF. 05/22/19 Reports improvement in dyspnea, cough & pleuritic chest pain; although its still very cumbersome as he reports a poor night once again. He denies any new symptoms, good urine output. 05/23/19 Patient with significant improvement in dyspnea & cough, continues to have pleuritic chest pain. He is very distressed due to constipation & abdominal distension, no improvement w/ oral laxatives. 05/24/19 No acute events overnight, reports difficulty with sleeping, also experiencing nausea & dizziness. He has no other complaints at this time, dyspnea & cough have improved substantially. 10 point review of system is negative except for above PHYSICAL EXAMINATION: VITAL SIGNS: Please see below. GENERAL: mild distress HEENT: Normocephalic, atraumatic, moist mucous membranes NECK: Supple CARDIOVASCULAR EXAMINATION: S1, S2, no murmurs RESPIRATORY EXAMINATION: Bibasilar rhonchi, no wheezing ABDOMINAL EXAMINATION: Soft, nontender, nondistended, positive bowel sounds EXTREMITIES: Bilateral lower extremity edema improving SKIN: No rash NEUROLOGICAL EXAMINATION: Alert and oriented 3, no focal deficits PSYCHIATRIC EXAMINATION: Calm and cooperative LABORATORY DATA, IMAGING STUDIES, MICROBIOLOGY: Please see below. ASSESSMENT AND PLAN: 83-year-old male with past medical history of COPD, coronary artery disease, hypertension, hyperlipidemia is admitted for COPD exacerbation and acute congestive heart failure. PROBLEMS: 1. Acute heart failure with preserved ejection fraction: significant clinical improvement, will continue to hold Lasix for now, monitor I's and O's, daily weight, fluid restriction of 1200 cc per day, TTE showing elevated pulmonary pressures, likely due to history of COPD. 2. COPD: DuoNeb PRN, supplemental oxygen as needed to maintain O2 sats between 88-92%. 3. TASHA on CKD: secondary to Lasix, creatinine improving after Lasix was held, will continue to hold Lasix & monitor renal function. 3. Hypertension: Hold Losartan due to TASHA, BP acceptable at this time. 4. Coronary artery disease: History of stent placement 2, continue medical management. 5. Rib fractures: Nondisplaced, secondary to severe coughing, pain control. DVT prophylaxis: Lovenox. GI prophylaxis: Not needed VS, I&O, 24H, Fishbone Vital Signs/I&O Vital Signs Date Time Temp Pulse Resp B/P (MAP) Pulse Ox O2 Delivery O2 Flow Rate FiO2 05/24/19 19:44 77 134/69 05/24/19 18:00 98.6 17 93 Room Air 05/21/19 08:00 2.0 05/20/19 06:31 28 I&O- Last 24 Hours up to 6 AM 05/24/19 06:00 Intake Total 390 ml Output Total 900 ml Balance -510 ml Laboratory Data 24H LABS Laboratory Tests 2 05/23/19 20:32: Bedside Glucose (Misc Panel) 124H 05/24/19 04:48: Nucleated Red Blood Cells % (auto) 0.0, Anion Gap 4L, Glomerular Filtration Rate 33.0L, Calcium Level 8.4L CBC/BMP Laboratory Tests 05/24/19 04:48 Microbiology Microbiology 05/20/19 Blood Culture - Preliminary, Resulted No Growth after 72 hours. All specime... 05/20/19 Blood Culture - Preliminary, Resulted No Growth after 72 hours. All specime... 05/20/19 Blood Culture - Preliminary, Resulted No Growth after 72 hours. All specime... 05/20/19 Respiratory Virus Panel (PCR) ([facility]) - Final, Complete TAMEKA OSBORNE MD May 24, 2019 20:09
[2019-05-25 02:00] VITALS: BP 111/59
[2019-05-25] MEDS: IPRATROPIUM 0.5MG/ALBUTEROL 2.5MG INH SOL UD 3ML (DUONEB)(J7620) NEB SCH ×2 (02:00→08:20)
[2019-05-25 05:04] VITALS: BP 119/64
[2019-05-25 07:10] LABS: CALCIUM LEVEL 7.9 MG/DL (8.8-10.2); CREATININE FOR GFR 1.76 MG/DL (0.70-1.30); GLOMERULAR FILTRATION RATE 39.4 (>35); POTASSIUM SERUM 4.4 MEQ/L (3.5-5.1)
[2019-05-25] MEDS: DOCUSATE SODIUM 100 MG CAP PO SCH (08:56)
[2019-05-25] MEDS: HEPARIN SOD (PORCINE) 5000 UNITS/ML VIAL (J1644 PER 1000UNITS) SQ SCH (08:56)
[2019-05-25] MEDS: DICLOFENAC EPOLAMINE 1.3 % PATCH TOP SCH (08:57)
[2019-05-25] MEDS ORDERED: FUROSEMIDE 40 MG TAB PO SCH (09:00)
[2019-05-25] MEDS ORDERED: FURO40TA2 PO (11:21)
--- NOTE | 2019-05-25 23:03 | DS.PDOC ---
Discharge Summary General Date of Admission May 20, 2019 at 04:42 Date of Discharge 05/25/19 Attending Physician: TAMEKA OSBORNE MD Discharge Summary PROCEDURES PERFORMED DURING STAY: None ADMITTING DIAGNOSES: 1. Acute heart failure with preserved ejection fraction, TASHA on CKD DISCHARGE DIAGNOSES: 1. Acute heart failure with preserved ejection fraction, TASHA on CKD COMPLICATIONS/CHIEF COMPLAINT: Rib Fracture. HISTORY OF PRESENT ILLNESS: 83 y.o male was admitted for acute heart failure; he was treated w/ IV Lasix with good clinical response. He developed TASHA on CKD secondary to the aggressive diuresis. Lasix was held for 48 hours with resolution of TASHA and return of creatinine back to baseline. Patient is clinically back to his baseline, TTE showed elevated right sided pressures, likely related to history of COPD. He is clinically and hemodynamically stable for discharge home and outpatient follow up w/ Cardiology, Nephrology & PCP. HOSPITAL COURSE: As above DISCHARGE MEDICATIONS: Please see below. ALLERGIES: Please see below. PHYSICAL EXAMINATION: VITAL SIGNS: Please see below. GENERAL: no distress HEENT: Normocephalic, atraumatic, moist mucous membranes NECK: Supple CARDIOVASCULAR EXAMINATION: S1, S2, no murmurs RESPIRATORY EXAMINATION: clear to auscultation, no wheezing ABDOMINAL EXAMINATION: Soft, nontender, nondistended, positive bowel sounds EXTREMITIES: Bilateral lower extremity edema improving SKIN: No rash NEUROLOGICAL EXAMINATION: Alert and oriented 3, no focal deficits PSYCHIATRIC EXAMINATION: Calm and cooperative LABORATORY DATA: Please see below. IMAGING: CT showing significant pulmonary congestion, TTE w/ elevated R sided pressures PROGNOSIS: Fair ACTIVITY: As tolerated DIET: Cardiac DISCHARGE PLAN: Follow up w/ Cardiology, Nephrology & PCP in 1-2 weeks DISPOSITION: 01 Home, Self-Care. DISCHARGE INSTRUCTIONS: 1. As above DISCHARGE CONDITION: Stable TIME SPENT ON DISCHARGE: Greater than 32 minutes. Vital Signs/I&Os Vital Signs Date Time Temp Pulse Resp B/P (MAP) Pulse Ox O2 Delivery O2 Flow Rate FiO2 05/25/19 05:04 98.3 69 17 119/64 (82) 97 Room Air 05/21/19 08:00 2.0 05/20/19 06:31 28 I&O- Last 24 Hours up to 6 AM 05/25/19 06:00 Intake Total 860 ml Output Total 350 ml Balance 510 ml Laboratory Data Labs 24H Laboratory Tests 2 3/11/20 06:23: Anion Gap 4L, Glomerular Filtration Rate 39.4, Calcium Level 7.9L CBC/BMP Laboratory Tests 05/25/19 06:23 Microbiology Microbiology 05/20/19 Blood Culture - Final, Complete NO GROWTH AFTER 5 DAYS 05/20/19 Blood Culture - Final, Complete NO GROWTH AFTER 5 DAYS 05/20/19 Blood Culture - Final, Complete NO GROWTH AFTER 5 DAYS 05/20/19 Respiratory Virus Panel (PCR) ([facility]) - Final, Complete Discharge Medications Scheduled Aspirin (Aspirin EC) 81 Mg Tablet.dr, 81 MG PO QHS, (Reported) Atenolol (Atenolol) 50 Mg Tab, 50 MG PO QHS, (Reported) Furosemide (Furosemide) 40 Mg Tablet, 40 MG PO DAILY Guaifenesin (Mucinex) 600 Mg Tab.er.12h, 600 MG PO BID, (Reported) Losartan Potassium (Losartan Potassium) 50 Mg Tablet, 50 MG PO QHS, (Reported) Rosuvastatin Calcium (Crestor) 20 Mg Tablet, 20 MG PO QHS, (Reported) Umeclidinium Brm/Vilanterol Tr (Anoro Ellipta 62.5-25 Mcg INH) 1 Each Blst.w.dev, 1 PUFF INH QHS, (Reported) Scheduled PRN Albuterol Sulf (Albuterol Sulfate) 2.5 Mg/3 Ml Vial.neb, 2.5 MG INH Q4H PRN for SHORTNESS OF BREATH, (Reported) Allergies Coded Allergies: No Known Allergies (Verified , 08/18/09) TAMEKA OSBORNE MD May 25, 2019 23:03
== END 2019-05-25 13:05 | disposition home or self-care (01) | DRG 291 ==
LOC: M ED 23:14 → M ED INP 05-20 04:42 → ENRESERVTM 05-20 13:50 → ENRESERVDT 05-20 13:50 → M PCU 05-20 15:45 → M MS5PR 05-24 12:41
PROVIDERS: ADMIT Internal Medicine; ATTEND Internal Medicine
DX: I13.0 Hypertensive heart and chronic kidney disease with heart failure and stage 1 through stage 4 chronic kidney disease, or unspecified chronic kidney disease (principal); I50.31 Acute diastolic (congestive) heart failure; R65.10 Systemic inflammatory response syndrome (SIRS) of non-infectious origin without acute organ dysfunction; S22.41XA Multiple fractures of ribs, right side, initial encounter for closed fracture; J44.1 Chronic obstructive pulmonary disease with (acute) exacerbation; N17.9 Acute kidney failure, unspecified; R05 Cough; I25.10 Atherosclerotic heart disease of native coronary artery without angina pectoris; Z95.1 Presence of aortocoronary bypass graft; E78.5 Hyperlipidemia, unspecified; Z90.49 Acquired absence of other specified parts of digestive tract; E66.9 Obesity, unspecified; Z68.33 Body mass index [BMI] 33.0-33.9, adult; Z79.82 Long term (current) use of aspirin; Z79.899 Other long term (current) drug therapy; X58.XXXA Exposure to other specified factors, initial encounter; Y92.89 Other specified places as the place of occurrence of the external cause; N18.9 Chronic kidney disease, unspecified

== ENCOUNTER → 2019-06-22 | Outpatient (CLI) | payer MEDICARE ==
[~2019-06-22] MED LIST changes: +ALBU83IN INH; +ANOR1AER INH; +ASPI-161 PO; +AZIT-12 PO; +CRES20TA2 PO; +FURO40TA2 PO; +LOSA50TA88 PO; +MUCI600T31 PO
--- NOTE | 2019-06-22 10:54 | REP ---
RENAL ULTRASOUND: Real-time sonographic evaluation of the kidneys performed. Kidneys are normal in size and echotexture, right kidney measuring 12.3 x 4.8 x 5.4 cm and left kidney 11.1 x 4.5 x 4.8 cm. There is no hydronephrosis bilaterally. There is a simple cyst of the lower pole of the right kidney 5.8 x 5.7 x 5.6 cm. Urinary bladder is not distended and not evaluated. Ureteral jets could not be seen with Doppler color evaluation. IMPRESSION: No hydronephrosis. Simple cyst lower pole right kidney 5.8 cm. Electronically Signed by aPsha Russo MD 06/22/2019 11:35 A
== END ==
LOC: M RAD 09:58
PROVIDERS: ATTEND Internal Medicine Nephrology
DX: N18.3 Chronic kidney disease, stage 3 (moderate) (principal); N28.1 Cyst of kidney, acquired

== ENCOUNTER 2020-03-19 10:05 | Inpatient (IN) | payer MEDICARE ==
[~2020-03-19] VITALS: Ht 172.7 cm; Wt 91.6 kg
[2020-03-19 10:44] LABS: BASO % 0.3 % (0.0-1.0); EOS % 0.2 % (0.0-3.0); HEMATOCRIT 51.5 % (42.0-52.0); HEMOGLOBIN 16.1 g/dl (13.5-17.5); LYMPH # 1.2 10^3/uL (1.5-5.0); LYMPH % 19.7 % (24.0-44.0); MEAN CORPUSCULAR HGB CONC 31.3 g/dl (32.0-36.5); MEAN CORPUSCULAR VOLUME 86.3 fl (80.0-96.0); MONO # 0.6 10^3/uL (0.0-0.8); MONO % 9.5 % (0.0-5.0); NEUTROPHILS # 4.3 10^3/uL (1.5-8.5); NEUTROPHILS % 69.6 % (36.0-66.0); PLATELET COUNT, AUTOMATED 124 10^3/uL (150-450); RED BLOOD COUNT 5.97 10^6/uL (4.30-6.10); WHITE BLOOD COUNT 6.1 10^3/uL (4.0-10.0)
--- NOTE | 2020-03-19 11:16 | REP ---
INDICATION: CHEST PAIN COMPARISON: 09/26/2016 TECHNIQUE: Portable AP view of the chest FINDINGS: Mediastinum and cardiac silhouette are stable. Lung patel demonstrate stable chronic changes primarily involving the retrocardiac medial left lower. No focal consolidation or effusion. No pneumothorax. Skeletal structures stable. IMPRESSION: No acute cardiopulmonary process appreciated. <Electronically signed by Caden Singer > 03/19/20 1115
[2020-03-19 11:19] LABS: ALBUMIN 3.7 GM/DL (3.2-5.2); BILIRUBIN,DIRECT 0.2 MG/DL (0.0-0.2); BILIRUBIN,TOTAL 0.9 MG/DL (0.2-1.0); FREE T4 1.3 NG/DL (0.76-1.46); THYROID STIMULATING HORMONE 6.13 uIU/ML (0.358-3.740)
[2020-03-19] MEDS: ALBUTEROL 90 MCG/ACT 8GM HFA INHALER INH SCH ×3 (11:23→12:10)
[2020-03-19] MEDS ORDERED: methylPREDNISolone 125MG 2ML VIAL IV ONE (11:30)
[2020-03-19 12:23] LABS: RSV AMPLIFICATION NEGATIVE (NEGATIVE)
[2020-03-19 13:00] LABS: INR 0.94; PROTHROMBIN TIME 12.8 SECONDS (12.5-14.3)
[2020-03-19 13:01] LABS: PARTIAL THROMBOPLASTIN TIME 32.6 SECONDS (24.2-38.5)
[2020-03-19] MEDS ORDERED: ISOVUE-370 76% 100ML VIAL As Ordered ONE (14:18)
[2020-03-19 14:38] LABS: C REACTIVE PROTEIN QUANTITATIV 6.96 MG/DL (0.00-0.30); MAGNESIUM LEVEL 2.2 MG/DL (1.8-2.4)
[2020-03-19] MEDS ORDERED: ATEN25TA PO (15:10)
[2020-03-19] MEDS ORDERED: FURO20TA2 PO (15:13)
--- NOTE | 2020-03-19 15:44 | REP ---
INDICATION: sob COMPARISON: 05/20/2019 TECHNIQUE: Axial contrast enhanced images from the thoracic inlet to the upper abdomen using pulmonary embolus technique with multiplanar re-formations. 75 ml Isovue 370 intravenous contrast material administered without complication. This CT examination was performed using the following dose reduction techniques: Automated exposure control, adjustment of mA and/or kv according to the patient's size, and use of iterative reconstruction technique. FINDINGS: Satisfactory enhancement of the pulmonary vasculature is achieved although evaluation is somewhat limited due to respiratory motion artifact. No obvious main through 3rd order pulmonary emboli are identified although very subtle small terminal branch emboli to the lower lobes cannot definitively be excluded. The lung patel demonstrate advanced emphysematous changes and scattered fibrosis/scarring which appears to have progressed since prior examination. Subtle early superimposed ground-glass infiltrates scattered within the upper and lower lobes cannot be excluded. No discrete focal areas of consolidation are yet identified. No effusion. No pneumothorax. Tracheobronchial tree is patent. Few mediastinal and hilar lymph nodes measuring up to 12 mm are nonspecific and likely reactive. Thoracic aorta is relatively normal/stable and without aneurysm or dissection. Atherosclerotic changes to the coronary arteries noted without cardiomegaly or pericardial effusion. Thyroid gland is relatively normal by CT evaluation. Musculoskeletal structures demonstrate age-related degenerative changes without acute osseous process. IMPRESSION: 1. No evidence for pulmonary embolus. 2. Normal thoracic aorta without aneurysm or dissection. 3. Lung patel demonstrate significant chronic changes including elements of emphysematous disease and scattered fibrosis/scarring which appears to have progressed since prior examination. 4. Patchy areas of bilateral ground-glass opacities are nonspecific but may represent early multifocal pneumonia. No discrete focal consolidation or effusion. <Electronically signed by Caden Singer > 03/19/20 1437
[2020-03-19] MEDS ORDERED: COMBIVENT RESPIMAT 100-20MCG INHALER 4GM INH PRN (16:00)
[2020-03-19] MEDS ORDERED: ACETAMINOPHEN TAB 650MG DOSE (2X325MG) PO PRN (16:00)
[2020-03-19] MEDS: COMBIVENT RESPIMAT 100-20MCG INHALER 4GM INH SCH ×2 (16:00→21:02)
[2020-03-19 16:56] VITALS: BP 153/94
--- NOTE | 2020-03-19 17:03 | HPEPDOC ---
General Date of Admission Mar 19, 2020 at 16:00 Date of Service: Mar 19, 2020 Chief Complaint The patient is a 84-year-old male admitted with a reason for visit of Copd Exacerbation,Covid 19. Source: Patient, RN/MD History of Present Illness 84 year old male with H/O COPD, CAD, CHF came to ED for increasing SOB for the past 4 days, Weakness and poor appetite for 2 days. He also complained of chest pain which was located to the left of center which was feeling of tightness and heaviness. He did have some increased coughing also. He felt he was rattling and getting full of fluids. In the ED on arrival he was wheezing and tachycardic. His COVID test was positive. He was not hypoxic at rest or ambulation. But after ambulating for about 2 minutes when he would sit down to rest his oxygenation dropped to 82% so he had a CT angio of chest. hs was negative for pulmonary embolism but showed advancing emphysema and scarring and fibrosis which has progressed form before. It also showed patchy bilateral ground glass opacities which as per radiologist may represent early multifocal pneumonia. He did not have any pulmonary vascular congestion or any effusion. Of note He had ran out of his Anoro about 2 weeks ago and has not been able to afford the refill. He also reports that he fell and hurt his left shoulder a month ago and he was getting outpatient PT. He denied any recent travel or any visitation with family or friends. He reports that he and his live by themselves and having been keeping away from others. He was admitted for COPD exacerbation with COVID-19 pneumonia with Hypoxia. Home Medications Scheduled Aspirin (Aspirin EC) 81 Mg Tablet.dr, 81 MG PO QHS, (Reported) Atenolol (Atenolol) 25 Mg Tablet, 25 MG PO QHS, (Reported) Furosemide (Furosemide) 20 Mg Tablet, 20 MG PO Q2D, (Reported) LAST REFILLED IN SEPTEMBER 2019, PT STATES TAKING Losartan Potassium (Losartan Potassium) 50 Mg Tablet, 50 MG PO QHS, (Reported) Rosuvastatin Calcium (Crestor) 20 Mg Tablet, 20 MG PO QHS, (Reported) Umeclidinium Brm/Vilanterol Tr (Anoro Ellipta 62.5-25 Mcg INH) 1 Each Blst.w.dev, 1 PUFF INH QHS, (Reported) Scheduled PRN Albuterol Sulf (Albuterol Sulfate) 2.5 Mg/3 Ml Vial.neb, 2.5 MG INH Q4H PRN for SHORTNESS OF BREATH, (Reported) Allergies Coded Allergies: No Known Allergies (Verified , 08/18/09) Past Medical History Medical History COPD HTN CAD status post stents / Dyslipidemia CKD stage 3 baseline creatinine 1.5 to 1.7. Surgical History Cholecystectomy Right total shoulder arthroplasty cardiac stents. Family History Cancer CAD COPD Social History * Smoker: former Smoker Alcohol: Denies Drugs: denies A-FIB/CHADSVASC A-FIB History Current/History of A-Fib/PAF?: No Review of Systems Constitutional: Denies: Chills, Fever, Night Sweats Eyes: Denies: Pain, Vision change ENT: Denies: Head Aches, Ear Pain, Dysphagia Skin: Denies: Rash, Lesions, Breakdown Pulmonary: Reports: Dyspnea, Cough Cardiovascular: Reports: Chest Pain Gastrointestinal: Denies: Nausea, Vomiting, Abdominal Pain, Diarrhea Genitourinary: Denies: Dysuria, Frequency, Incontinence, Retention Hematologic: Denies: Bruising, Bleeding Excessively Musculoskeletal: Reports: Shoulder Pain Physical Examination General Exam: Positive: Alert, Cooperative, No Acute Distress Eye Exam: Positive: PERRLA, Conjunctiva & lids normal, EOMI; Negative: Sclera icteric ENT Exam: Positive: Atraumatic, Mucous membr. moist/pink, Pharynx Normal Neck Exam: Positive: Supple, JVD; Negative: thyromegaly Chest Exam: Positive: Wheezing (bilateral scattered wheezing), Other (Bilateral basal crackles. ) Heart Exam: Positive: Tachycardic, Regular Rhythm, Normal S1, Normal S2; Negative: Murmurs, Rubs Telemetry: Positive: No significant arrhythmia Abdomen Exam: Positive: Normal bowel sounds, Soft; Negative: Tenderness, Hepatospenomegaly Extremity Exam: Negative: Clubbing, Cyanosis, Edema Skin Exam: Positive: Nl turgor and temperature; Negative: Breakdown, Lesion Neuro Exam: Positive: Normal Speech, Strength at 5/5 X4 ext, Normal Tone Vital Signs Vital Signs Date Time Temp Pulse Resp B/P (MAP) Pulse Ox O2 Delivery O2 Flow Rate FiO2 03/19/20 16:30 98.6 111 22 153/85 (107) 95 03/19/20 11:12 Nasal Cannula 2.0 Laboratory Data Labs 24H Laboratory Tests 2 03/19/20 10:20: Immature Granulocyte % (Auto) 0.7, Neutrophils (%) (Auto) 69.6H, Lymphocytes (%) (Auto) 19.7L, Monocytes (%) (Auto) 9.5H, Eosinophils (%) (Auto) 0.2, Basophils (%) (Auto) 0.3, Neutrophils # (Auto) 4.3, Lymphocytes # (Auto) 1.2L, Monocytes # (Auto) 0.6, Eosinophils # (Auto) 0.0, Basophils # (Auto) 0.0, Nucleated Red B lood Cells % (auto) 0.0, Magnesium Level 2.2, Ferritin 281, Total Bilirubin 0.9, Direct Bilirubin 0.2, Aspartate Amino Transf (AST/SGOT) 82H, Alanine Aminotransferase (ALT/SGPT) 34, Alkaline Phosphatase 96, Lactate Dehydrogenase 390H, C-Reactive Protein, Quantitative 6.96H, SD-Qyn-M-Type Natriuretic Peptide 79, Total Protein 7.0, Albumin 3.7, Albumin/Globulin Ratio 1.1, Lipase 212, Thyroid Stimulating Hormone (TSH) 6.130H, Free Thyroxine 1.30 03/19/20 10:33: 03/19/20 10:43: POC Glucose (Misc Panel) 115H, POC Sodium (Misc Panel) 138, POC Potassium (Misc Panel) 4.1, POC Chloride (Misc Panel) 103, POC Total CO2 (Misc Panel) 25.0, POC Blood Urea Nitrogen (Misc Panel 36H, POC Ionized Calcium (Misc Panel) 4.2L, POC Creatinine (Misc Panel) 1.6H, POC Hematocrit (Misc Panel) 50.0 03/19/20 10:46: POC Troponin I (Misc) 0.00 03/19/20 11:31: Coronavirus (COVID-19)(PCR) POSITIVEA, Influenza Type A (RT-PCR) NEGATIVE, Influenza Type B (RT-PCR) NEGATIVE, Respiratory Syncytial Virus (PCR) NEGATIVE 03/19/20 12:26: Prothrombin Time 12.8, Prothromb Time International Ratio 0.94, Activated Partial Thromboplast Time 32.6, Fibrinogen 667H 03/19/20 13:13: POC pH (Misc Panel) 7.419, POC Base Excess (Misc Panel) -3.0L, POC Saturated Percent O2 (Misc) 93L, POC pO2 (Misc Panel) 65.0L, POC pCO2 (Misc Panel) 33.4L, POC HCO3 (Misc Panel) 21.6L, POC Total CO2 (Misc Panel) 23.0 03/19/20 14:21: D-Dimer, Quantitative 818.97H CBC/BMP Laboratory Tests 03/19/20 10:20 Microbiology Microbiology 03/19/20 Blood Culture, Received Pending 03/19/20 Blood Culture, Received Pending Assessment/Plan 84 year old male with H/O COPD, CAD, CHF came to ED for increasing SOB for the past 4 days, Weakness and poor appetite for 2 days. He also complained of chest pain which was located to the left of center which was feeling of tightness and heaviness. He did have some increased coughing also. He felt he was rattling and getting full of fluids. In the ED on arrival he was wheezing and tachycardic. His COVID test was positive. He was not hypoxic at rest or ambulation. But after ambulating for about 2 minutes when he would sit down to rest his oxygenation dropped to 82% so he had a CT angio of chest. hs was negative for pulmonary embolism but showed advancing emphysema and scarring and fibrosis which has progressed form before. It also showed patchy bilateral ground glass opacities which as per radiologist may represent early multifocal pneumonia. He did not have any pulmonary vascular congestion or any effusion. Of note He had ran out of his Anoro about 2 weeks ago and has not been able to afford the refill. He also reports that he fell and hurt his left shoulder a month ago and he was getting outpatient PT. He denied any recent travel or any visitation with family or friends. He reports that he and his live by themselves and having been keeping away from others. He was admitted for COPD exacerbation with COVID-19 pneumonia with Hypoxia. COPD exacerbation will give methyl pred, combivent, symbicort oxygen supplementation. Levofloxacin COVID -19 pneumonia will order follow up inflammatory markers. oxygen supplementation, steroids. CAD ASA, statin, betablocker HLD statin CKD stage 3 creatinine at 1.6 which is at baseline will hold losartan now as just had contrast monitor for contrast nephropathy HTN amlodipine in place of losartan. atenolol. Diastolic CHF with moderate pulmonary hypertension and possible chronic right heart failure fluid status appears to be euvolemic will continue home lasix. Plan / VTE VTE Prophylaxis Ordered?: Yes HANNAH ROLDAN MD Mar 19, 2020 17:03
[2020-03-19] MEDS ORDERED: LevoFLOXacin IV 750 MG in IV 1 EA IV SCH (18:00)
[2020-03-19 19:41] VITALS: BP 139/79
[2020-03-19 20:29] VITALS: BP 125/73
[2020-03-19] MEDS: methylPREDNISolone 40MG 1ML VIAL IV SCH (20:51)
[2020-03-19] MEDS: DOCUSATE SODIUM 100MG CAPSULE PO SCH (20:52)
[2020-03-19] MEDS ORDERED: LOSARTAN 50MG TABLET PO SCH (21:00)
[2020-03-19] MEDS ORDERED: ASPIRIN 81 MG ENTERIC TAB PO SCH (21:00)
[2020-03-19] MEDS ORDERED: atenoloL 25 MG TAB PO SCH (21:00)
[2020-03-19] MEDS ORDERED: ROSUVASTATIN 10 MG TAB (CRESTOR) PO SCH (21:00)
[2020-03-19] MEDS: SYMBICORT 160/4.5MCG INHALER 6GM INH SCH (21:02)
[2020-03-20] MEDS: COMBIVENT RESPIMAT 100-20MCG INHALER 4GM INH SCH ×5 (00:23→15:42)
[2020-03-20] MEDS ORDERED: RAMELTEON 8 MG TAB (ROZEREM) PO PRN (00:45)
[2020-03-20 03:38] VITALS: BP 112/71
[2020-03-20] MEDS: methylPREDNISolone 40MG 1ML VIAL IV SCH ×2 (05:34→12:26)
--- NOTE | 2020-03-20 06:09 | ECGEPIP ---
[facility] - ED Test Date: 2020-03-19 Pat Name: SHADE SINGH Department: Room: - Gender: Male Process Server: bj : 1935 Requested By: Claire Ndiaye Order Number: [id number] Reading MD: Claire Ndiaye Measurements Intervals [place] Rate: 104 P: 10 DC: 138 QRS: 33 QRSD: 85 T: 41 QT: 338 QTc: 446 Interpretive Statements SINUS TACHYCARDIA ABNORMAL RHYTHM ECG NONSPECIFIC ST T WAVE CHANGES 05/20/[address] T [facility]AVE CHANGES Electronically Signed on 03-20-2020 6:09:16 EST by Claire Ndiaye
[2020-03-20 07:36] LABS: BASO % 0.2 % (0.0-1.0); HEMATOCRIT 46.3 % (42.0-52.0); HEMOGLOBIN 14.9 g/dl (13.5-17.5); LYMPH # 1.4 10^3/uL (1.5-5.0); LYMPH % 23.6 % (24.0-44.0); MEAN CORPUSCULAR HGB CONC 32.2 g/dl (32.0-36.5); MEAN CORPUSCULAR VOLUME 83.9 fl (80.0-96.0); MONO # 0.3 10^3/uL (0.0-0.8); MONO % 4.6 % (0.0-5.0); NEUTROPHILS # 4.2 10^3/uL (1.5-8.5); NEUTROPHILS % 71.1 % (36.0-66.0); PLATELET COUNT, AUTOMATED 134 10^3/uL (150-450); RED BLOOD COUNT 5.52 10^6/uL (4.30-6.10); WHITE BLOOD COUNT 5.9 10^3/uL (4.0-10.0)
[2020-03-20 07:59] LABS: INR 0.99; PROTHROMBIN TIME 13.3 SECONDS (12.5-14.3)
[2020-03-20 08:00] LABS: PARTIAL THROMBOPLASTIN TIME 31.1 SECONDS (24.2-38.5)
[2020-03-20 08:03] LABS: D-DIMER QUANT 883.75 ng/ml (<500)
[2020-03-20 08:12] LABS: BILIRUBIN,TOTAL 0.9 MG/DL (0.2-1.0); CALCIUM LEVEL 8.1 MG/DL (8.8-10.2); CREATININE FOR GFR 1.64 MG/DL (0.70-1.30); GLOMERULAR FILTRATION RATE 42.6 (>35); MAGNESIUM LEVEL 2.3 MG/DL (1.8-2.4); POTASSIUM SERUM 4.7 MEQ/L (3.5-5.1); TOTAL PROTEIN 6.3 GM/DL (6.4-8.2)
[2020-03-20] MEDS: SYMBICORT 160/4.5MCG INHALER 6GM INH SCH (08:39)
[2020-03-20] MEDS: amLODIPine 10 MG TAB PO SCH ×2 (08:57→09:01)
[2020-03-20] MEDS: DOCUSATE SODIUM 100MG CAPSULE PO SCH (08:57)
[2020-03-20] MEDS ORDERED: ENOXAPARIN 40MG/0.4ML SYRINGE (J1650 PER 10MG) SC SCH (09:00)
[2020-03-20 09:01] VITALS: BP 120/81
[2020-03-20] MEDS ORDERED: TESS100C PO (13:23)
[2020-03-20] MEDS ORDERED: PRED20TA PO (13:26)
[2020-03-20 14:00] VITALS: BP 127/82
[2020-03-20] MEDS ORDERED: FUROSEMIDE 20 MG TAB PO SCH (17:00)
--- NOTE | 2020-03-20 19:39 | DS.PDOC ---
Discharge Summary General Date of Admission Mar 19, 2020 at 16:00 Date of Discharge 03/20/2020 Attending Physician: PRAVEENA JOE MD Discharge Summary PROCEDURES PERFORMED DURING STAY: None ADMITTING DIAGNOSES: 1. Covid-19 infection 2. COPD exacerbation DISCHARGE DIAGNOSES: covid-19 infection COPD exacerbation HTN CAD status post stents Dyslipidemia CKD stage 3 baseline creatinine 1.5 to 1.7. COMPLICATIONS/CHIEF COMPLAINT: Copd Exacerbation,Covid 19. HISTORY OF PRESENT ILLNESS: 84 year old M with H/O COPD, CAD who presented to the ED for increasing SOB for 4 days, Weakness and poor appetite for 2 days. He also complained of chest pain which was located to the left of center which was feeling of tightness and heaviness. He did have some increased coughing also. HOSPITAL COURSE: In the ED on arrival he was wheezing and tachycardic. His COVID test was posit tabitha. He was not hypoxic at rest or ambulation. But after ambulating for about 2 minutes when he would sit down to rest his oxygenation dropped to 82% so he had a CT angio of chest which was negative for pulmonary embolism but showed advancing emphysema and scarring and fibrosis which has progressed from before. It also showed patchy bilateral ground glass opacities c/w covid infection vs. early covid-pneumonitis/PNA. He did not have any pulmonary vascular congestion or any effusions. He was admitted for COPD exacerbation with COVID-19 infection and received IV steroids with resolution of the brief exertional hyoxemia. By day 2 he ambulated without desaturation and covid-19 indices were downtrending. He is now being discharged home to continue 14 self isolation with 5d of pred 40 for a COPD exacerbation and tessalon perls for coughing. DISCHARGE MEDICATIONS: Please see below. ALLERGIES: Please see below. PHYSICAL EXAMINATION ON DISCHARGE: VITAL SIGNS: Please see below. General: Alert, Cooperative, No Acute Distress Eyes: PERRLA, Conjunctiva & lids normal, EOMI, anicteric ENT: Atraumatic, Mucous membr. moist/pink, Pharynx Normal Neck: Supple, no jvd Chest: No wheezing this morning, bibasilar crackles, good air movement Heart: Regular Rhythm, Normal S1, Normal S2, no mrg Abdomen: Normal bowel sounds, soft, NTND Extremities: no edema Neuro: Normal Speech, Strength at 5/5 X4 ext, Normal Tone LABORATORY DATA: Please see below. IMAGING: CTA chest: Satisfactory enhancement of the pulmonary vasculature is achieved although evaluation is somewhat limited due to respiratory motion artifact. No obvious main through 3rd order pulmonary emboli are identified although very subtle small terminal branch emboli to the lower lobes cannot definitively be excluded. The lung patel demonstrate advanced emphysematous changes and scattered fibrosis/scarring which appears to have progressed since prior examination. Subtle early superimposed ground-glass infiltrates scattered within the upper and lower lobes cannot be excluded. No discrete focal areas of consolidation are yet identified. No effusion. No pneumothorax. Tracheobronchial tree is patent. Few mediastinal and hilar lymph nodes measuring up to 12 mm are nonspecific and likely reactive. Thoracic aorta is relatively normal/stable and without aneurysm or dissection. Atherosclerotic changes to the coronary arteries noted without cardiomegaly or pericardial effusion. Thyroid gland is relatively normal by CT evaluation. Musculoskeletal structures demonstrate age-related degenerative changes without acute osseous process. IMPRESSION: 1. No evidence for pulmonary embolus. 2. Normal thoracic aorta without aneurysm or dissection. 3. Lung patel demonstrate significant chronic changes including elements of emphysematous disease and scattered fibrosis/scarring which appears to have progressed since prior examination. 4. Patchy areas of bilateral ground-glass opacities are nonspecific but may represent early multifocal pneumonia. No discrete focal consolidation or effusion. PROGNOSIS: good ACTIVITY: As tolerated. DIET: 2g sodium DISCHARGE PLAN: home DISPOSITION: 01 Home, Self-Care. DISCHARGE INSTRUCTIONS: 1. Home to self isolate and follow up with PCP within 2 weeks ITEMS TO FOLLOWUP ON ON OUTPATIENT: Covid-19 infection Worsening noted chronic emphysematous changes, may require pulmonary referral by PCP DISCHARGE CONDITION: Stable TIME SPENT ON DISCHARGE: 34 minutes. Vital Signs/I&Os Vital Signs Date Time Temp Pulse Resp B/P (MAP) Pulse Ox O2 Delivery O2 Flow Rate FiO2 03/20/20 14:00 97.4 89 18 127/82 (97) 93 Room Air 03/20/20 03:38 2.0 I&O- Last 24 Hours up to 6 AM 03/20/20 05:59 Intake Total 240 ml Output Total 600 ml Balance -360 ml Laboratory Data Labs 24H Laboratory Tests 2 03/20/20 06:26: Immature Granulocyte % (Auto) 0.5, Neutrophils (%) (Auto) 71.1H, Lymphocytes (%) (Auto) 23.6L, Monocytes (%) (Auto) 4.6, Eosinophils (%) (Auto) 0.0, Basophils (%) (Auto) 0.2, Neutrophils # (Auto) 4.2, Lymphocytes # (Auto) 1.4L, Monocytes # (Auto) 0.3, Eosinophils # (Auto) 0.0, Basophils # (Auto) 0.0, Nucleated Red Blood Cells % (auto) 0.0, Prothrombin Time 13.3, Prothromb Time International Ratio 0.99, Activated Partial Thromboplast Time 31.1, Fibrinogen 600H, D-Dimer, Quantitative 883.75H, Anion Gap 6L, Glomerular Filtration Rate 42.6, Calcium Level 8.1L, Magnesium Level 2.3, Ferritin 366, Total Bilirubin 0.9, Aspartate Amino Transf (AST/SGOT) 77H, Alanine Aminotransferase (ALT/SGPT) 36, Alkaline Phosphatase 83, Lactate Dehydrogenase 329H, Total Protein 6.3L, Albumin 3.0L, Albumin/Globulin Ratio 0.9 CBC/BMP Laboratory Tests 03/20/20 06:26 Microbiology Microbiology 03/19/20 Blood Culture - Preliminary, Resulted No growth after 24 hours . All specim... 03/19/20 Blood Culture - Preliminary, Resulted No growth after 24 hours . All specim... Discharge Medications Scheduled Aspirin (Aspirin EC) 81 Mg Tablet.dr, 81 MG PO QHS, (Reported) Atenolol (Atenolol) 25 Mg Tablet, 25 MG PO QHS, (Reported) Benzonatate (Tessalon Perle) 100 Mg Capsule, 1 CAP PO TID for cough Furosemide (Furosemide) 20 Mg Tablet, 20 MG PO Q2D, (Reported) LAST REFILLED IN SEPTEMBER 2019, PT STATES TAKING Losartan Potassium (Losartan Potassium) 50 Mg Tablet, 50 MG PO QHS, (Reported) Prednisone (Prednisone) 20 Mg Tablet, 40 MG PO DAILY Rosuvastatin Calcium (Crestor) 20 Mg Tablet, 20 MG PO QHS, (Reported) Umeclidinium Brm/Vilanterol Tr (Anoro Ellipta 62.5-25 Mcg INH) 1 Each Blst.w.dev, 1 PUFF INH QHS, (Reported) Scheduled PRN Albuterol Sulf (Albuterol Sulfate) 2.5 Mg/3 Ml Vial.neb, 2.5 MG INH Q4H PRN for SHORTNESS OF BREATH, (Reported) Allergies Coded Allergies: No Known Allergies (Verified , 08/18/09) PRAVEENA JOE MD Mar 20, 2020 19:39
== END 2020-03-20 16:10 | disposition home or self-care (01) | DRG 177 ==
LOC: M ED 10:05 → M ED INP 16:00 → ENRESERV 16:14 → M 4MAIN 17:36
PROVIDERS: ADMIT Internal Medicine Nephrology; ATTEND Internal Medicine
DX: U07.1 COVID-19 (principal); J12.89 Other viral pneumonia; J44.1 Chronic obstructive pulmonary disease with (acute) exacerbation; J44.0 Chronic obstructive pulmonary disease with (acute) lower respiratory infection; I13.0 Hypertensive heart and chronic kidney disease with heart failure and stage 1 through stage 4 chronic kidney disease, or unspecified chronic kidney disease; I50.32 Chronic diastolic (congestive) heart failure; N18.30 Chronic kidney disease, stage 3 unspecified; I25.10 Atherosclerotic heart disease of native coronary artery without angina pectoris; Z95.2 Presence of prosthetic heart valve; J84.10 Pulmonary fibrosis, unspecified; Z87.891 Personal history of nicotine dependence